=== PATIENT | male | born 1955 | race Caucasian/White ===

== ENCOUNTER 2022-04-09 10:50 | Day surgery (SDC) | payer MEDICARE, MEDICAID ==
[~2022-04-09] VITALS: Ht 174 cm; Wt 55.7 kg
[~2022-04-09 10:50] MED LIST: LIDOcaine 1% 30ml preserv. free vial SQ STA
[2022-04-09 11:10] VITALS: BP 155/92
[2022-04-09 11:40] VITALS: BP 139/91
[2022-04-09] MEDS ORDERED: MORP15TA PO (11:40)
[2022-04-09] MEDS ORDERED: BACL10TA2 PO (11:40)
[2022-04-09] MEDS ORDERED: ATOR20TA66 PO (11:40)
[2022-04-09] MEDS ORDERED: ASPI-1265 PO (11:40)
[2022-04-09] MEDS ORDERED: LISI40TA13 PO (11:40)
[2022-04-09] MEDS ORDERED: TIOT4MIS3 IH (11:40)
[2022-04-09 11:50] VITALS: BP 125/77
[2022-04-09 12:00] VITALS: BP 131/80
[2022-04-09 12:15] VITALS: BP 134/76
== END 2022-04-09 12:40 | disposition home or self-care (01) ==
LOC: SSTAY O 10:50
PROVIDERS: ATTEND Preventive Medicine Aerospace Medicine
DX: R22.1 Localized swelling, mass and lump, neck (principal); J44.9 Chronic obstructive pulmonary disease, unspecified; F17.210 Nicotine dependence, cigarettes, uncomplicated; Z88.0 Allergy status to penicillin; Z79.82 Long term (current) use of aspirin; Z79.899 Other long term (current) drug therapy
CPT/HCPCS: 10005; 10007; 36415; 76942; 88173; 88184; 88185; 88305